=== PATIENT | male | born 1990 | race Caucasian/White ===

== ENCOUNTER 2016-03-17 22:50 | Emergency (ER) | payer SELFPAY ==
[~2016-03-17] VITALS: Ht 177.8 cm; Wt 105.5 kg
[~2016-03-17 22:50] MED LIST: ADDERALL20 MG PO; DOXYCYCLINE HY100 MG PO; NOHOMEMEDS; Vicodin,Norco 5/325 PO; oxyCODONE PO
[2016-03-18] MEDS ORDERED: CEFTIN250 MG PO (01:03)
[2016-03-18 01:14] VITALS: BP 111/79
== END 2016-03-18 01:15 | disposition home or self-care (01) ==
LOC: EME 22:50
DX: H66.92 Otitis media, unspecified, left ear (principal); J02.9 Acute pharyngitis, unspecified; R05 Cough; R09.89 Other specified symptoms and signs involving the circulatory and respiratory systems
CPT/HCPCS: 99281; 99283